=== PATIENT | female | born 1940 | race Caucasian/White ===

== ENCOUNTER 2022-03-19 11:24 | Outpatient (CLI) | payer MEDICARE, OTHER, SELFPAY ==
--- NOTE | 2022-03-19 12:08 | ECG_ITS ---
Measurements Intervals [place] Rate: 84 P: TX: 0 QRS: -23 QRSD: 76 T: 25 QT: 381 QTc: 452 Interpretive Statements SINUS RHYTHM RSR' IN V1 OR V2, PROBABLY NORMAL VARIANT LOW QRS VOLTAGE IN PRECORDIAL LEADS POOR R WAVE PROGRESSION, ANTERIOR LEADS INFERIOR INFARCT, AGE INDETERMINATE BASELINE ARTIFACT- I, II, III, AVR, AVL, AVF, V1-V6 ABNORMAL ECG NO PREVIOUS ECG AVAILABLE FOR COMPARISON Electronically Signed On 03-19-2022 12:42:28 CDT by Henry Fernandez D.O.
== END 2022-03-19 11:25 | disposition home or self-care (01) ==
LOC: ANHSURGERY 11:35
PROVIDERS: PCP Internal Medicine; Visit Provider Otolaryngology
DX: I10 Essential (primary) hypertension (principal); Z01.818 Encounter for other preprocedural examination; R94.31 Abnormal electrocardiogram [ECG] [EKG]
CPT/HCPCS: 93005

== ENCOUNTER 2022-03-22 01:20 | Day surgery (SDC) | payer MEDICARE, OTHER, SELFPAY ==
--- NOTE | 2022-03-17 09:42 | PC.NURSE ---
Report to the Outpatient Waiting Room, entrance under the green pavilion located off [facility], at time 0630 on date _03/22/22 . OR Time: __0830 . - You and your visitor will be asked to self-screen and do not enter if you have any COVID symptoms. - Only one visitor and NO children visitors are allowed at this time. - The patient visitor is requested to leave or wait in car when not with patient due to restrictions. - A mask is required within the hospital. Patients may have clear liquids (water, carbonated beverages, clear teas, apple juice) until 3 hours prior to surgery with a maximum of 20 ounces. - No food from midnight until time of surgery - Infants may have breast milk until 4 hours before surgery, infant formula 6 hours prior to surgery. - Children will be allowed to drink immediately following surgery. If applicable, please bring a bottle or sippy cup to assist with drinking. Juice, water, soda, and popsicles are readily available. For infants on formula, please bring formula the day of surgery. Pacifiers are allowed. Take the following medications with a SIP of water the morning of surgery: ___TRELEGY INHALER, Medications to discontinue per physician ALL VITAMINS AND SUPPLEMENTS 3 DAYS PRE OP Date to take last dose__03/18/22 Please no make-up, nail thai, hairspray, perfume, deodorant, or body powder the day of surgery. No jewelry (including any body piercings) or valuables the day of surgery, leave them at home. Please take a shower or bath the night before, or the morning of, surgery with an antibacterial soap. Wear comfortable, loose fitting clothing. Children are encouraged to wear pajamas. - Jewelry must be removed prior to entering the operating room. Rings and piercings that are not removed may be cut off. - The hospital will not accept responsibility for valuables. - Please leave all valuables, including medications, at home the day of surgery. If you are going home after surgery, a licensed hazardous materials driver must drive you home. - NO public transportation without another adult. - We recommend that an adult stay with you for 24 hours following discharge. - We also recommend that you do not drive, make important decision, drink alcoholic beverages, or take any drugs that were not prescribed by your health care provider for at least 24 hours after your discharge time. For Pediatric surgeries, we recommend two adults accompany the child home (only one inside the building at this time). Follow any additional instructions given to you from your surgeon. If you or anyone in your household have experienced Covid symptoms in the past week, please notify your surgeon or the nurse liaison at the phone number below for possible testing. Telephone instructions given to __PATIENT and asked if any additional questions and then verbalized understanding. Patient advised to call surgeon office or pre surgery nurse liaison [phone] if any additional questions.
[2022-03-17 09:51] VITALS: BMI 27.4
[2022-03-22] VITALS (15 sets, daily range): BP systolic 148–171; BP diastolic 71–87; PULSE 75–98; RESP 10–18; TEMP 36.2–36.8; O2SAT 91–100
[2022-03-22] MEDS: LACTATED RINGERS 1,000 ML 30 ML IV CONT ×2 (06:45→10:29)
[2022-03-22] MEDS: ACETAMINOPHEN 500 MG TABLET 1000 MG PO (07:08)
--- NOTE | 2022-03-22 07:54 | WPDANESEPPF ---
Anes - Initial Pre Proc Eval Procedure: Operation Date: 03/22/22 08:30 Proposed Procedures p Fusion Guided Bilateral Frontal Sinusotomy, Bilateral Ethmoidectomy, Bilateral Sphenoidotomy, Bilateral Maxillary Antrostomy, Bilateral Turbinate Reduction, Bilateral Heidi Bullosa Resection - Osvaldo Helton MD s Septoplasty - Osvaldo Helton MD Date/Time: 03/22/22 07:54 Surgeon: Osvaldo Helton MD Pre Op Diagnosis: nasal polyps, chronic sinusitis, deviated septum, Patient Data Age: 81 Gender: F Height: 1.57 m Weight: 68.05 kg Allergies Allergy/AdvReac Type Severity Reaction Status Date / Time doxycycline Allergy Headache Verified 03/22/22 07:51 gabapentin Allergy Swelling Verified 03/22/22 07:51 nitrofurantoin Allergy Hallucinati Verified 03/22/22 07:51 [From Macrobid] ng prednisone Allergy Swelling Verified 03/22/22 07:51 pregabalin Allergy TONGUE Verified 03/22/22 07:51 SWELLING sulfamethoxazole Allergy Hallucinati Verified 03/22/22 07:51 [From Bactrim] ng trimethoprim [From Bactrim] Allergy Hallucinati Verified 03/22/22 07:51 ng Home Medications Medication Instructions Recorded Confirmed Type albuterol sulfate 90 mcg/actuation 2 puff inhalation Q4H 03/17/22 03/22/22 History aerosol inhaler (Ventolin HFA) [id number]-[id number] tablet 1 tablet PO DAILY 03/17/22 03/22/22 History cholecalciferol (vitamin D3) 125 125 mcg PO DAILY 03/17/22 03/22/22 History mcg (5,000 unit) tablet estradiol 0.075 mg/24 hr 0.75 mg transdermal WEEKLY 03/17/22 03/22/22 History semiweekly transdermal patch (Vivelle-Dot) fluticasone fur. 200 mcg-umeclid 1 ea inhalation DAILY 03/17/22 03/22/22 History 62.5 mcg-vilant 25 mcg inhalat.powder (Trelegy Ellipta) fluticasone propionate 50 1 spray intranasal BID 03/17/22 03/22/22 History mcg/actuation nasal spray,suspension lisinopril 5 mg tablet 5 mg PO DAILY 03/17/22 03/22/22 History tramadol 50 mg tablet 50 mg PO BID 03/17/22 03/22/22 History vitamin B complex 1 cap PO DAILY 03/17/22 03/22/22 History Patient hx anesthesia problems: none Family hx anesthesia problems: none Results Review: All pre-operative results and documents have been reviewed as part of the pre-operative evaluation. [facility] Past Medical History Medical History (Updated 03/22/22 @ 07:56 by Osvaldo Helton MD) HTN (hypertension) Hyperlipidemia Overweight Peripheral neuropathy Surgical History Surgical History (Updated 03/22/22 @ 07:55 by Nitin Bravo MD) H/O: hysterectomy History of lumbar surgery Social History Social History Smoking packs per day: 0.5 Smoking cigarettes per day: 10.0 Years smoked: 15 Smoking pack-years: 7.50 Smoking status: Former smoker Tobacco type: cigarettes Smoking end date: 07/11/72 Alcohol intake: current Alcohol use details: ONE DRINK PER MONTH Living arrangements: alone Spiritual care concerns: No Anes - Eval Final PreProcedure Day of Procedure 03/22/22 07:54 Patient weight: overweight Heart: regular rate and rhythm Lungs: clear to auscultation Airway: Mallampati scale class II Neurological: alert and oriented Last oral intake: >/= 8 hours ASA classification: III Emergent: no Anesthetic plan: proceed Anesthesia type and monitoring: general ETT and standard monitoring Results Review: All pre-operative results and documents have been reviewed as part of the pre-operative evaluation. Informed Consent: The patient's anesthetic plan and its attendant risks and benefits were discussed with the patient/family/POA. Questions were solicited and answers provided to the satisfaction of the patient/family/POA.
--- NOTE | 2022-03-22 07:54 | PM.IMHP ---
H&P: HPI History of Present Illness Date/Time: 03/22/22 07:54 Chief Complaint: Chronic sinusitis Narrative: chronic sinusitis Review of Systems Review of Systems: All systems reviewed & are unremarkable except as noted in HPI and below [facility] Past Medical History Medical History (Updated 03/22/22 @ 07:56 by Osvaldo Helton MD) HTN (hypertension) Hyperlipidemia Overweight Peripheral neuropathy Surgical History Surgical History (Updated 03/22/22 @ 07:55 by Nitin Bravo MD) H/O: hysterectomy History of lumbar surgery Social History Social History Smoking packs per day: 0.5 Smoking cigarettes per day: 10.0 Years smoked: 15 Smoking pack-years: 7.50 Smoking status: Former smoker Tobacco type: cigarettes Smoking end date: 07/11/72 Alcohol intake: current Alcohol use details: ONE DRINK PER MONTH Living arrangements: alone Spiritual care concerns: No Meds Home Medications and Allergies Home Medications Medication Instructions Recorded Confirmed Type albuterol sulfate 90 mcg/actuation 2 puff inhalation Q4H 03/17/22 03/22/22 History aerosol inhaler (Ventolin HFA) [id number]-nofd tablet 1 tablet PO DAILY 03/17/22 03/22/22 History cholecalciferol (vitamin D3) 125 125 mcg PO DAILY 03/17/22 03/22/22 History mcg (5,000 unit) tablet estradiol 0.075 mg/24 hr 0.75 mg transdermal WEEKLY 03/17/22 03/22/22 History semiweekly transdermal patch (Vivelle-Dot) fluticasone fur. 200 mcg-umeclid 1 ea inhalation DAILY 03/17/22 03/22/22 History 62.5 mcg-vilant 25 mcg inhalat.powder (Trelegy Ellipta) fluticasone propionate 50 1 spray intranasal BID 03/17/22 03/22/22 History mcg/actuation nasal spray,suspension lisinopril 5 mg tablet 5 mg PO DAILY 03/17/22 03/22/22 History tramadol 50 mg tablet 50 mg PO BID 03/17/22 03/22/22 History vitamin B complex 1 cap PO DAILY 03/17/22 03/22/22 History Allergies Allergy/AdvReac Type Severity Reaction Status Date / Time doxycycline Allergy Headache Verified 03/22/22 07:51 gabapentin Allergy Swelling Verified 03/22/22 07:51 nitrofurantoin Allergy Hallucinati Verified 03/22/22 07:51 [From Macrobid] ng prednisone Allergy Swelling Verified 03/22/22 07:51 pregabalin Allergy TONGUE Verified 03/22/22 07:51 SWELLING sulfamethoxazole Allergy Hallucinati Verified 03/22/22 07:51 [From Bactrim] ng trimethoprim [From Bactrim] Allergy Hallucinati Verified 03/22/22 07:51 ng Exam Narrative: Deviated septum, large right antrochoanal polyp, pansinusitis Assessment and Plan Assessment and plan (1) Chronic sinusitis: Code(s): J32.9 - Chronic sinusitis, unspecified Status: Acute Plan Betty has nasal polyps, chronic sinusitis, here for endoscopic sinus surgery, septoplasty under image guidance. r/b/a reviewed, she understands and agrees to proceed with surgery. Refer to outpt H&P for full details.
--- NOTE | 2022-03-22 07:56 | WPDHPUPDATE1 ---
History and Physical Update Update Date/Time: 03/22/22 07:56 History and Physical has been reviewed, including an updated exam of the patient. There are NO changes in the patient's condition. Risks, benefits, and alternatives have been discussed and questions answered. Patient agrees to proceed with procedure.
[2022-03-22] MEDS: OXYMETAZOLINE HCL 0.05% NAS 15 ML BTL (*BKC) 1 SPRAY NASAL (08:02)
[2022-03-22] MEDS: ceFAZolin 2 GM/D5W 50 ML 2 GM/50 ML BAG IVPB (08:24)
[2022-03-22] MEDS: MUPIROCIN 2% OINT 22 GM TUBE 1 APPLIC EACH NARE (09:42)
--- NOTE | 2022-03-22 09:45 | W.PM.PROC2 ---
Procedure Note - Detailed Date of Procedure 03/22/22 Pre-op Diagnosis nasal polyps, chronic sinusitis, deviated septum, Post-op Diagnosis Same Procedure Performed Bilateral frontal sinusotomy, total ethmoidectomy, sphenoidotomy, left joon bullosectomy, bilateral inferor turbinoplasty, bilateral maxillary antrostomy with bilateral lavage. Image guided surgery. Surgeon Osvaldo Helton MD Anesthesia General Indications chronic pansinusitis Findings Right antrochoanal polyp. Purulent fluid within bilateral maxillary, frontal and sphenoid sinuses as well as right ethmoid cavity. Description of Procedure On the date of procedure the patient was met in the preoperative area and risk and benefits of the procedure reviewed with the patient as documented in the H&P and they elected to proceed with surgery. Patient was brought back to the operating room by the anesthesia team and underwent general endotracheal anesthesia. Once an adequate plane of anesthesia was obtained a timeout was performed to assure the patient identification the patient here to be performed were correct. They were.The patient was then prepped and draped in the normal fashion for endoscopic sinus surgery. The diffusion image guidance system was calibrated and used for the entire case. Afrin-soaked pledgets were placed in the nasal cavities bilaterally. The entire case was performed under endoscopic visualization. Nasal endoscopy was performed at the beginning of the case. 1% lidocaine with 1:100,000 epinephrine was then injected into the root of the middle turbinate and lateral nasal wall. Attention was first directed towards the right side. The middle turbinate was medialized and the osteomeatal complex was identified with a heron probe. Using a 90 degree backbiter, the uncinate process was reflected anteriorly and removed using a combination of sharp and powered dissection. The maxillary antrostomy was then created and widened by identifying the natural ostia and opening the sinus with straight margot-cut forceps, backbiter, and microdebrider. Polyp tissue encountered was removed with microdebrider. Purulent fluid within the maxillary sinus. Continuing with the microdebrider, the anterior ethmoid bulla was opened. Careful dissection was carried out posteriorly, through the basal lamella and posterior ethmoid cells until the sphenoid rostrum was identified. A Jorden suction bluntly identified the sphenoid os and the opening was widened with microdebrider and mushroom punch to 5mm. Purulent fluid was removed from the sphenoid. Using an image guided curved suction as well as J-curette, the posterior most ethmoid cell was identified and the ethmoids were bluntly fractured and dissected from posterior to anterior along the base of the skull. The remaining bone fragments were removed with appropriate curved instruments and microdebrider. Next, The left maxillary antrostomy, ethmoidectomy and sphenoidotomy were carried out in identical fashion with findings of chronic infection throughout. Upon completion of these portions of the procedure, attention was returned to the right side. The frontal recess was identified, with gross polyp disease obstructing and removed. Image guided seeker confirmed proper identification of the frontal recess. With all sinuses opened and no remaining polyp disease appreciated, nasopore packing was placed in the ethmoid acvities bilaterally. Hemostasis was ensured. This was repeated on the left with purulent fluid removed from the left frontal sinus. Lastly, the bilateral inferior turbiantes were reduced submucosally using 2mm microdebrider and then outfractured with a sayer elevator. This significantly opened the airway. At this point, the procedure was concluded. Care the patient was transferred back to the anesthesia team and the patient was awoke in the operating room and transferred back to the PACU in stable condition. Osvaldo Helton M.D. Estimate
[2022-03-22] MEDS: LIDO 1%/EPINEPHRINE 1:100,000 20 ML VIAL 10 ML INFILTRATE (10:00)
--- NOTE | 2022-03-22 10:51 | SUR.PHASEI ---
Face tent removed at 1050.
[2022-03-22] MEDS: ONDANSETRON INJ 4 MG/2 ML VIAL IV PUSH (12:19)
== END 2022-03-22 14:32 | disposition home or self-care (01) ==
PROVIDERS: PCP Internal Medicine; Visit Provider Otolaryngology
PROC: (CPT 31253; principal; 2022-03-22 08:30)
DX: J32.9 Chronic sinusitis, unspecified (principal); J34.2 Deviated nasal septum; J33.9 Nasal polyp, unspecified; I10 Essential (primary) hypertension; E78.5 Hyperlipidemia, unspecified; G62.9 Polyneuropathy, unspecified; Z87.891 Personal history of nicotine dependence; Z79.51 Long term (current) use of inhaled steroids
CPT/HCPCS: 31253; 31287; 31256; 30140; 31240; 61782; 88305; A9270; J0330; J0690; J1170; J2250; J2405; J2704; J3010; J7120